=== PATIENT | female | born 1995 | race Caucasian/White ===

== ENCOUNTER 2020-08-18 09:25 | Outpatient (REF) | payer OTHER, SELFPAY ==
[2020-08-19 11:29] LABS: BV Int Neg Control Negative (Negative); BV Int Pos Control Positive (Positive)
[2020-08-19 11:42] LABS: C. trachomatis RNA TMA NOT DETECTED (NOT DETECTED); N. gonorrhoeae RNA TMA NOT DETECTED (NOT DETECTED)
== END 2020-08-18 09:26 | disposition home or self-care (01) ==
LOC: HO.LAB 09:25
PROVIDERS: Visit Provider Obstetrics & Gynecology
DX: Z01.419 Encounter for gynecological examination (general) (routine) without abnormal findings (principal); Z11.3 Encounter for screening for infections with a predominantly sexual mode of transmission
CPT/HCPCS: 87480; 87491; 87510; 87591; 87660

== ENCOUNTER 2023-03-24 17:22 | Emergency (ER) | payer OTHER, SELFPAY ==
--- NOTE | ~2023-03-24 | XR_ITS ---
EXAMINATION: CHEST 2 VIEWS CLINICAL INFORMATION: cough. COMPARISON: No recent pertinent prior studies are available for comparison. TECHNIQUE: PA and lateral views of the chest obtained. FINDINGS: The lungs are well expanded. No focal infiltrate, effusion, edema, or pneumothorax. Cardiac and mediastinal silhouettes are within normal limits for technique. No acute bony abnormality seen XR/XR chest 2V IMPRESSION: No evidence of acute disease
[2023-03-24 18:25] VITALS: BP 129/91; PULSE 99; RESP 18; TEMP 36.6; O2SAT 99; BMI 23.9
--- NOTE | 2023-03-24 18:25 | ED.URI ---
HPI - URI/Sore Throat General Chief Complaint: General Medical Stated Complaint: sinus infection,headache Time Seen by Provider: 03/24/23 19:24 Source: patient Mode of arrival: ambulatory Limitations: no limitations History of Present Illness HPI Narrative: 27-year-old female brought to ED for headache, sinus infection, cough with green phlegm and nasal discharge with green phlegm. Patient came to the ED due to the headache with the coughing. Patient denies any slurred speech, facial droop, paralysis of extremities, inability to move neck, rash, recent trauma, so loss of vision, or thunderclap headache. Patient presently on Augmentin to treat early pneumonia versus sinusitis. Related Data Home Medications Medication Instructions Recorded Confirmed spironolactone 50 mg tablet mg PO 08/18/20 Previous Rx's Medication Instructions Recorded metronidazole 500 mg tablet 500 mg PO BID 7 days #14 tabs 08/23/20 (Flagyl) metronidazole 0.75 % (37.5 mg/5 1 appful vaginal BEDTIME 5 days 09/04/20 gram) vaginal gel (Metrogel #70 grams Vaginal) naproxen 500 mg tablet 500 mg PO BID PRN pain 7 days #14 03/24/23 tabs Allergies Allergy/AdvReac Type Severity Reaction Status Date / Time No Known Allergies Allergy Unverified 08/18/20 09:30 Review of Systems Review of Systems: Nasal discharge green, coughing up green phlegm, headache, malaise Yes all other systems are reviewed and are negative [facility] Family History Family History Maternal Aunt Breast cancer Social History Social History (Updated 08/18/20 @ 09:31 by MICHOACANO Cintron) Alcohol intake: current Alcohol intake frequency: holidays/special occasions only Substance Use Type: Marijuana Advance Directives: No Advance Directives Information Provided: Yes Sexual orientation: Straight/Heterosexual Gender identity: Female Physical Exam Vital Signs: Vital Signs: Last Vital Signs Temp 97.9 F 03/24/23 18:25 Pulse 99 03/24/23 18:25 Resp 18 03/24/23 18:25 BP 129/91 H 03/24/23 18:25 Pulse Ox 99 03/24/23 18:25 O2 Del Method Room Air 03/24/23 18:25 BMI result Body Mass Index 23.9 Const: General: cooperative, healthy appearing, comfortable, no acute distress, well developed, alert, awake and Physically active Orientation/consciousness: oriented to person, oriented to place, oriented to time and patient oriented x3 HEENT: Head: Yes normal to inspection, Yes No palpable skull fracture present, Yes normocephalic, Yes atraumatic and No abrasion Ears: hearing grossly normal bilaterally, external ears normal, TM's normal bilaterally, TM normal on the right, TM normal on the left, EAC's normal, mastoids normal and no periauricular adenopathy General nose exam: Normal external nose present and Normal nares present Face and sinus: Yes normal facial exam, Yes sinuses nontender and Yes face symmetric Mouth: Normal oral and palatal mucosa present and lip normal Throat: Yes posterior oropharynx normal, Yes tonsils normal and Yes uvula midline Eyes: General: appearance normal, both eyes and all related structures Direct Ophthalmoscopy: normal light reflex and no photophobia Neck: Neck: Yes normal visual inspection, Yes full ROM, Yes no lymphadenopathy, Yes no meningeal signs, Yes trachea midline, Yes supple, No anterior neck swelling, No bilateral parotid enlargement, No lymphadenopathy, No midline deformity, No positive Brudzinski's sign, No positive Kernig's sign and No tender Chest: Chest palpation & inspection: normal inspection of the chest and normal palpation of entire chest wall Resp: Effort & Inspection: normal respiratory effort and able to speak in complete sentences Auscultation: clear to auscultation bilaterally Cardio: Jugular venous distension: no JVD Heart sounds: S1 normal heart sound present and S2 normal heart sound present GI: Inspection: Yes normal to inspection and No abdominal wall ecchymosis Palpation (GI): Soft to palpation, not firm, nontender, no guarding and not rigid : General: No CVA tenderness and Yes no CVA tenderness Back/Spine/Pelvis: Back: no CVA tenderness, No CVA tenderness and No back tenderness Skin: General skin exam: no rashes or lesions noted, elasticity normal and turgor normal Neuro: General: oriented to person, oriented to place, oriented to time, patient oriented x3, gait normal, tone normal, moves all extremities, Normal light touch and pain sensation, no meningeal signs, no focal motor deficits, CN's II-XI intact bilaterally and normal sensation to monofilament Extrem: General: Yes normal to inspection and Yes full ROM Psych: Appearance: grossly normal, well kempt and not disheveled Course Course Course Narrative: RME - 27 yo female presents to the ER for evaluation of a headache located in her bilateral temples for the last few days in the setting of recently diagnosed sinus infection. Improved with exedrin migraine some. Just started on augmentin last week for early pneumonia. Wants to be sure there is no neurologic issue because she has a stiff neck on the right side. No fevers at home. Appears well Plan: CXR, viral swabs Medical Decision Making Medical Decision Making [facility] Narrative: 27-year-old female with coughing, headache, nasal discharge, coughing up green phlegm, and malaise since last week Friday. Patient is on augmented. Patient denies any photophobia, neck stiffness, rash, chest pain, shortness of breath, abdominal pain, dysuria, hematuria, recent trauma, or flank pain. 8:07pm: Physical exam negative for signs of meningitis. Negative for photophobia. Neck is not stiff. Patient has complete range of motion of neck. Negative for any rash on the body. Patient is not altered. Patient denies any history of HIV or herpes. Ear exam normal. Not suspecting aseptic meningitis or encephalitis. Chest x-ray negative pneumonia. COVID influenza RSV swab negative. Not suspecting meningitis. Not suspecting brain bleed, skull fracture, stroke ,or cervical spine fracture. Differential Diagnosis Differential Diagnoses: The differential diagnosis associated with the presentation includes (Meningitis, cephalitis, pneumonia, COVID, RSV, stroke, brain bleed, skull fracture) Lab Data [facility] Lab Attestation statement: I reviewed the patient's lab results. Labs: Lab Results 03/24/23 Range/Units 18:29 Influenza Type A (PCR) NEGATIVE (Negative) Influenza Type B (PCR) NEGATIVE (Negative) RSV RNA Qual (PCR) NEGATIVE (Negative) SARS-CoV-2 RNA (RT-PCR) NEGATIVE (Negative) Independent Interpretation I performed an independent interpretation of an: Plain X-Ray Radiology Impression Discussion of test interpretation with radiology: I have reviewed the radiologist's reading. External Record Review External record reviewed: Other (Prior ED visit) Prescription Management I considered prescription management with: Pain Medication Discharge Plan Discharge Clinical Impression: Sinusitis, URI (upper respiratory infection), Headache Patient Disposition: Home, Self-Care Instructions: Sinusitis (ED), Upper Respiratory Infection (ED), Acute Headache (ED), Cold Symptoms (ED) Additional Instructions: Please follow-up with the primary care provider. Return to the ED immediately for any neck stiffness, fever, chills, rash, light bothered eyes, nausea, vomiting, chest pain, shortness of breath, altered mental status, passing out, worsening headache, or any other concerning symptoms. Continue taking antibiotics. Prescriptions: New naproxen 500 mg tablet 500 mg PO BID PRN (Reason: pain) 7 Days Qty: 14 0RF No Action metronidazole [Flagyl] 500 mg tablet 500 mg PO BID 7 Days Qty: 14 0RF Rx Instructions: Avoid alcohol and vinegar products. metronidazole [Metrogel Vaginal] 0.75 % gel 1 appful vaginal BEDTIME 5 Days Qty: 70 0RF spironolactone 50 mg tablet PO Stand Alone Forms: Work/School Release Interventions: ED Discharge Assessment Last Done: 03/24/23 20:35 Discharge Date/Time: 03/24/23 20:35 Print Language: Cypriot
[2023-03-24 19:10] LABS: Influenza A PCR NEGATIVE (Negative); Influenza B PCR NEGATIVE (Negative); Resp Syncy Virus RNA Qual PCR NEGATIVE (Negative); SARS COV2 PCR INHOUSE NEGATIVE (Negative)
== END 2023-03-24 20:35 | disposition home or self-care (01) ==
PROVIDERS: Physician Assistant; Emergency Provider Emergency Medicine
DX: J32.9 Chronic sinusitis, unspecified (principal); J06.9 Acute upper respiratory infection, unspecified; R51.9 Headache, unspecified; Z20.822 Contact with and (suspected) exposure to COVID-19; Z20.828 Contact with and (suspected) exposure to other viral communicable diseases
CPT/HCPCS: 0241U; 71046; 99282; 99283